=== PATIENT | female | born 1970 ===

== ENCOUNTER → 2021-04-10 | Outpatient (CLI) | payer BC | END | disposition home or self-care (01) | LOC: LAB 11:16 → LAB SHORT 11:16 | DX: D48.5 Neoplasm of uncertain behavior of skin (principal) | CPT/HCPCS: 88305 ==

== ENCOUNTER 2022-03-04 09:40 | Day surgery (SDC) | payer BC ==
[~2022-03-04] VITALS: Ht 162.6 cm; Wt 54.2 kg
[~2022-03-04 09:40] MED LIST: Estrace Vagin42.5 GM; LORA10ER PO; Retin-A20 GM
== END 2022-03-04 11:29 | disposition home or self-care (01) ==
LOC: ORSCSDS 09:40
PROVIDERS: Student in an Organized Health Care Education/Training Program
PROC: 0DBL8ZX Excision of Transverse Colon, Via Natural or Artificial Opening Endoscopic, Diagnostic (ICD-10-PCS; principal; 2022-03-04 11:00)
PROC: 0DBN8ZX Excision of Sigmoid Colon, Via Natural or Artificial Opening Endoscopic, Diagnostic (ICD-10-PCS; principal; 2022-03-04 11:00)
PROC: 0DBK8ZX Excision of Ascending Colon, Via Natural or Artificial Opening Endoscopic, Diagnostic (ICD-10-PCS; principal; 2022-03-04 11:00)
DX: Z12.11 Encounter for screening for malignant neoplasm of colon (principal); K63.5 Polyp of colon; D12.2 Benign neoplasm of ascending colon; D12.3 Benign neoplasm of transverse colon; K21.9 Gastro-esophageal reflux disease without esophagitis; Z79.899 Other long term (current) drug therapy
CPT/HCPCS: 88305; J2704

== ENCOUNTER → 2022-11-07 | Outpatient (CLI) | payer BC | END | disposition home or self-care (01) | LOC: LAB 08:00 → LAB SHORT 08:00 | DX: K21.9 Gastro-esophageal reflux disease without esophagitis (principal) | CPT/HCPCS: 87338 ==

== ENCOUNTER 2023-01-16 12:12 | Day surgery (SDC) | payer BC ==
[~2023-01-16] VITALS: Ht 162.6 cm; Wt 54.1 kg
[2023-01-16] MEDS ORDERED: ERGO400 (12:23)
== END 2023-01-16 13:30 | disposition home or self-care (01) ==
LOC: ORSCSDS 12:12
PROVIDERS: Student in an Organized Health Care Education/Training Program
PROC: 0DB68ZX Excision of Stomach, Via Natural or Artificial Opening Endoscopic, Diagnostic (ICD-10-PCS; principal; 2023-01-16 13:30)
PROC: 0DB98ZX Excision of Duodenum, Via Natural or Artificial Opening Endoscopic, Diagnostic (ICD-10-PCS; principal; 2023-01-16 13:30)
DX: R14.0 Abdominal distension (gaseous) (principal); K31.7 Polyp of stomach and duodenum; Z79.899 Other long term (current) drug therapy
CPT/HCPCS: 88305; 88342; J2704; J7120

== ENCOUNTER 2025-09-15 08:06 | Day surgery (SDC) | payer BC ==
[~2025-09-15] VITALS: Ht 162.6 cm; Wt 56.5 kg
[~2025-09-15 08:06] MED LIST changes: +ERGO400
[2025-09-15] MEDS ORDERED: CLIMARA1 EACH (08:34)
[2025-09-15] MEDS ORDERED: TESTOSTERONE (08:34)
[2025-09-15] MEDS ORDERED: PROG100 (08:34)
[2025-09-15] MEDS ORDERED: Calcium Acetat667 MG (08:35)
[2025-09-15 11:06] VITALS: BP 103/73
== END 2025-09-15 11:08 | disposition home or self-care (01) ==
LOC: ORSCSDS 08:06
PROVIDERS: Internal Medicine Gastroenterology
PROC: 0DJD8ZZ Inspection of Lower Intestinal Tract, Via Natural or Artificial Opening Endoscopic (ICD-10-PCS; principal; 2025-09-15 09:45)
DX: Z12.11 Encounter for screening for malignant neoplasm of colon (principal); Z86.0101 Personal history of adenomatous and serrated colon polyps; Z86.0102 Personal history of hyperplastic colon polyps
CPT/HCPCS: J2704; J7120